=== PATIENT | male | born 1950 | race Caucasian/White ===

== ENCOUNTER 2016-06-08 14:45 | Inpatient (IN) | payer MEDICARE, OTHER ==
[~2016-06-08] VITALS: Ht 170.2 cm; Wt 81.8 kg
--- NOTE | ~2016-06-08 | DS ---
PATIENT'S NAME: BETH SAMUEL [facility] AGE: 65 Y [address] ROOM: [address] [place] [id number] LOCATION: [facility] ADMIT DATE: 06/08/2016 Discharge Summary DISCHARGE DATE: 06/17/2016 FAMILY PHYSICIAN: bOdulia Ruano APRN ATTENDING PHYSICIAN: Katherine Wheat ADMISSION MAIN DIAGNOSES: 1. Incomplete cervical spinal cord injury. 2. C2, C3 flexion compression fracture. 3. C2-3, C3-4 spinal stenosis. DISCHARGE MAIN DIAGNOSES: 1. Incomplete cervical spinal cord injury. 2. C2, C3 flexion compression fracture. 3. C2-3, C3-4 spinal stenosis. PROCEDURES DURING ADMISSION: C2-C5 decompressive laminectomy, C2-C5 posterior instrumented arthrodesis and stabilization. COMPLICATIONS DURING ADMISSION: None. DISCHARGE INSTRUCTIONS AND FOLLOWUP APPOINTMENTS: 1. Discontinue wound aries by primary physician on June 23, 2016. 2. Soft neck collar when in bed, [place] neck collar when mobilizing. 3. No heavy lifting, no neck twisting. 4. Call my office directly for any issues with wound healing or for any new neurologic deficits. 5. Keep the dressing on and dry till June 19, 2016, then take off and keep the wound open to air. 6. Upright cervical spine x-ray on July 09, 2016. MEDICATIONS ON TRANSFER: Listed in the patient's transfer medications. HOSPITAL COURSE: The patient is a 65-year-old male patient, who was admitted to the hospital with incomplete cervical spinal cord injury. The patient had severe weakness on the right upper and lower extremities. His imaging showed evidence of C2, C3 vertebral body fracture, severe stenosis at C2-C3, and C3-4 levels. The patient had previous anterior cervical diskectomy and fusion. The patient underwent an unremarkable operation during the admission. Postoperatively, the patient did very well. His right-sided weakness started to improve with physical therapy and occupational therapy. The patient was able to mobilize with physical therapy and occupational therapy. He had postoperative cervical spine x-ray and that showed satisfactory placement of the hardware and no complications. The patient was assessed by rehab, and it was felt that this patient may benefit from inpatient rehabilitation. Given PATIENT'S NAME: BETH SAMUEL [facility] AGE: 65 Y [address] ROOM: [address] [place], [place] [address] LOCATION: [facility] ADMIT DATE: 06/08/2016 Discharge Summary DISCHARGE DATE: 06/17/2016 FAMILY PHYSICIAN: Obdulia Ruano APRN ATTENDING PHYSICIAN: Katherine Wheat that, it was arranged for this patient to be transferred to [facility] to continue inpatient rehabilitation. On the day of discharge, the patient was examined. His wound was healing very well. Neurologically, the right upper extremity weakness started to improve. The patient was mobilizing very well with physical therapy and occupational therapy. I discussed the discharge instructions with the receiving physician, and the patient was transferred on June 17, 2016, in stable condition. MD KATELYN ESCOTO/aline /[id number] CC: DULCE Peng PA-C [address] [place] [address] d: 06/18/16 0449 t: 06/18/16 1317, DISCHARGE SUMMARY
--- NOTE | ~2016-06-08 | OR ---
PATIENT'S NAME: LIZZIE [facility] AGE: 65 Y [address] ROOM: [place] [address] LOCATION: [facility] ADMIT DATE: 06/08/2016 OR/Procedure Report DISCHARGE DATE: FAMILY PHYSICIAN: Obdulia Ruano APRN ATTENDING PHYSICIAN: KATHERINE WHEAT SURGEON: Katherine Wheat MD [employer]MENT MECH[employer]IC APPRENTICE: DATE OF PROCEDURE: 06/09/2016 ANESTHESIOLOGIST: Solis Lozoya MD ANESTHESIA: General. COMPLICATIONS: None. ESTIMATED BLOOD LOSS: 150 mL. PREOPERATIVE DIAGNOSES: 1. Incomplete cervical spinal cord injury post fall. 2. C2-C3, C3-C4, and C4-C5, cervical spinal stenosis with myelopathy. 3. History of C4 to C7 anterior cervical diskectomy and fusion. 4. C2 and C3 vertebral body fracture. POSTOPERATIVE DIAGNOSES: 1. Incomplete cervical spinal cord injury post fall. 2. C2-C3, C3-C4, and C4-C5, cervical spinal stenosis with myelopathy. 3. History of C4 to C7 anterior cervical diskectomy and fusion. 4. C2 and C3 vertebral body fracture. PROCEDURES PERFORMED: 1. C2-C3 decompressive laminectomy for spinal stenosis. 2. C3-C4 decompressive laminectomy for spinal stenosis. 3. C4-C5 decompressive laminectomy for spinal stenosis. 4. C2-C3, C3-C4, and C4-C5 posterior arthrodesis. 5. Insertion of bilateral C2 pars screws, bilateral C3 lateral mass screws, bilateral C4 lateral mass screws, and bilateral C5 lateral mass screws (system used is [email or web address] system). 6. Insertion of a mixture of allograft, autograft, and DBM bone posterolaterally for the arthrodesis. 7. Application of Davison head clamp. 8. Use and interpretation of intraoperative fluoroscopy. CLINICAL HISTORY/INDICATIONS FOR PROCEDURE: The patient is a 65-year-old male patient, who had a fall from a standing position on 06/07/2016, presented to the hospital with gamifjxk-ha-phdhzk weakness in his extremities. He was PATIENT'S NAME: LIZZIE [facility] AGE: 65 Y [address] ROOM: [address] [address] LOCATION: [facility] ADMIT DATE: 06/08/2016 OR/Procedure Report DISCHARGE DATE: FAMILY PHYSICIAN: Obdulia Ruano APRN ATTENDING PHYSICIAN: KATHERINE WHEAT initially investigated with cervical spine CT scan and that showed C2, C3 vertebral body fracture as well as severe stenosis at C2-C3, C3-C4, and C4-C5 levels. The patient then had cervical spine MRI and that confirmed injury to the cervical spinal cord at C3-C4 level due to severe stenosis. I recommended the above-mentioned surgery to the patient and his family to try to decompress the cervical spinal cord and hopefully help with recovery. I discussed the surgery itself, the benefits, and all the risks associated with it. The patient was interested in proceeding with surgery so he was brought into the operating room. DESCRIPTION OF PROCEDURE: The patient was seen in the preoperative care unit and the correct side was marked. Then, he was transferred to the main operating theater, was given general anesthetic, and underwent endotracheal intubation without complications. Preoperative antibiotics, steroids were given. Viera catheter, calf compressors, and an arterial line were used throughout the procedure. The patient's head was clamped in 3 pins Davison. Then, he was carefully turned to prone position on a gel padded Sudarshan table and all his joints and bony prominences were securely padded. The patient's shoulders were taped away for intraoperative fluoroscopy. The hair overlying the suboccipital scalp was clipped off. Then, I marked the midline posterior cervical incision extending from the inion down to C7 spinous process. The surgical site was prepped and draped as per usual. The proposed skin incision was infiltrated with 0.25% Marcaine with epinephrine. The skin was sharply opened down to the subcutaneous tissue, then using monopolar cautery, the posterior elements from C2 to C5 were exposed bilaterally. The correct level was confirmed using intraoperative fluoroscopy. I started by inserting screws into C2 pars, C3, C4, and C5 lateral masses. Based on the standard anatomical landmarks and using intraoperative fluoroscopy, those screws were inserted without complications. The hardware placement was checked using intraoperative fluoroscopy. I was satisfied with that. Then, I proceeded to perform the decompressive laminectomy at C2-C3, C3-C4, and C4-C5 levels. Leksell was used to remove the spinous processes of C2, C3, C4, and C5. Then using a high-speed Midas Gary drill, the laminae were thinned down to the ligamentum flavum. The ligamentum flavum was enlarged at three levels. Then, using Kerrison rongeur, I completed the decompressive laminectomy at C2-3, C3-4, and C4-5 without complications. The thecal sac was completely decompressed at the end. I was satisfied with that and had no complications. Then, I proceeded to insert rods and lock the screws. Two rods were inserted, the screws were capped and finally locked. Final x-ray was performed and that PATIENT'S NAME: BETH SAMUEL [facility] AGE: 65 Y [address] ROOM: [address] [place], [place] [address] [facility] ADMIT DATE: 06/08/2016 OR/Procedure Report DISCHARGE DATE: FAMILY PHYSICIAN: Obdulia Ruano APRN ATTENDING PHYSICIAN: KATHERINE WHEAT showed satisfactory placement of the hardware. Then, I proceeded to irrigate the wound. It was irrigated with bacitracin- containing irrigation. Hemostasis was achieved. A high-speed Midas Gary drill was used to decorticate the facet joints and the lateral masses from C2 to C5. Then a mixture of allograft, autograft, and DBM bone was laid posterolaterally and bilaterally for posterior arthrodesis. The dura was covered with Gelfoam. A 1/8 Hemovac drain was inserted, tunneled, and secured to the skin with 3-0 Prolene. Then, the wound was closed in layers with #1 Vicryl to the fascia, 2- 0 Vicryl to the subcutaneous tissue, and aries for the skin. Sterile dressing was applied. At the end of the operation, the instrument and sponge counts were correct. The patient tolerated the operation without complications. MD KATELYN ESCOTO/aline /[id number] CC: Obdulia Ruano APRN d: 06/09/16 1305 t: 06/10/16 1048, OPERATIVE SUMMARY
--- NOTE | ~2016-06-08 | HP ---
PATIENT'S NAME: LIZZIE BETH [facility] AGE: 65 Y [address] ROOM: [address] [place], [place] [address] LOCATION: [facility] ADMIT DATE: 06/08/2016 History & Physical DISCHARGE DATE: FAMILY PHYSICIAN: Obdulia Ruano APRN ATTENDING PHYSICIAN: NASRIN REEDER DATE OF SERVICE: 06/08/2016 CHIEF COMPLAINT: Traumatic cervical spinal cord injury due to fall; C2, C3 fractures; C3-4 severe spinal stenosis; previous C4-C7 anterior cervical diskectomy and fusion. CLINICAL HISTORY: The patient is a 65-year-old male patient, who lives alone, had a fall on June 07, 2016, from a standing position. The patient fell forward. He had loss of consciousness. When he woke up, he was unable to move his upper and lower extremities. He was then found by his ex- on the floor. She called for help, and they managed to get him up to the chair. Slowly, the patient started moving his extremities but continued to have severe weakness on the right upper and lower extremities. He then had another fall. He tumbled and fell sideways. Today, the patient was concerned about the weakness, and he presented to the emergency in [place] where he was investigated. Cervical spine CT scan showed evidence of C2, C3 vertebral body fractures as well as severe stenosis at C3-4 level. I was contacted and reviewed the imaging. I recommended transferring the patient over for further investigations and management. I met the patient on the kathleen. He confirmed the history. He was accompanied by his family, who helped with the history as well. At the time of the encounter, the patient reported numbness and tingling on his extremities. He also reported severe weakness on his hands, right worse than the left. He reported mild neck pain. He also reported longstanding low back pain and bilateral buttock and thigh pain. He denied fever, chills. The patient is known to have COPD, and he uses oxygen at home. PAST MEDICAL AND SURGICAL HISTORY: Hypertension, COPD, previous C4-C7 anterior cervical diskectomy and fusion, right knee surgery. MEDICATIONS: Listed in the patient's chart. ALLERGIES: LISTED IN THE PATIENT'S CHART. PATIENT'S NAME: LIZZIE [facility] AGE: 65 Y [address] ROOM: [address] [place], [place] [address] LOCATION: [facility] ADMIT DATE: 06/08/2016 History & Physical DISCHARGE DATE: FAMILY PHYSICIAN: Obdulia Ruano APRN ATTENDING PHYSICIAN: NASRIN REEDER SOCIAL HISTORY: The patient lives alone in [place]. He is an ex-smoker. He reported social alcohol drinking. FAMILY HISTORY: The patient's brother has COPD and diabetes. REVIEW OF SYSTEMS: A 10-point review of systems was asked about. Pertinent positives were mentioned in the HPI. PHYSICAL EXAMINATION: GENERAL: The patient was cooperative and pleasant. He was on nasal oxygen. HEENT: Head: The patient had bruising on his forehead. Pupils were equal and reactive. NECK: It was immobilized in rigid collar. He had mild tenderness to palpation on the back of his neck. SKIN: He had an anterior neck scar from previous surgery. LYMPHATIC: No cervical lymphadenopathy. RESPIRATORY: He was in mild respiratory distress due to COPD. CARDIOVASCULAR: He had strong pulses on the upper and lower extremities. GAIT: Not done. MUSCULOSKELETAL: He had evidence of muscle wasting on both hands. NEUROLOGICAL: He was alert and oriented. Cranial nerves examination was grossly normal. Motor examination on the upper extremities showed moderate weakness on the left side and severe weakness on the right side, distal more than proximal. The right hand muscles were severely weak. 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 Motor examination on the lower extremities showed moderate weakness proximally and distally, right worse than the left. Deep tendon reflexes were severely brisk on the lower extremities. He had strongly positive clonus bilaterally. He also had strongly positive Marly and Babinski signs. Deep tendon reflexes were brisk throughout. INVESTIGATIONS: 1. Cervical spine CT scan done in [place], [place], today. I personally reviewed that. It showed evidence of C2, C3 vertebral body fracture involving the anterior inferior corner. It also showed evidence of previous C4 through C7 anterior cervical diskectomy and fusion with satisfactory bony fusion and canal decompression. It showed evidence of severe stenosis at C3-4 level. 2. MRI cervical spine done today. It showed evidence of acute spinal cord injury at C3-4 level due to severe spinal stenosis at the same level. It showed congenitally small cervical canal. PATIENT'S NAME: BETH SAMUEL [facility] AGE: 65 Y [address] ROOM: [address] [place], [place] [address] LOCATION: [facility] ADMIT DATE: 06/08/2016 History & Physical DISCHARGE DATE: FAMILY PHYSICIAN: Obdulia Ruano APRN ATTENDING PHYSICIAN: NASRIN REEDER 3. Lumbar spine CT scan. I personally reviewed that. It showed evidence of L5-S1 isthmic spondylolisthesis, grade 1. It showed evidence of bilateral L5 foraminal stenosis, severe. No evidence of fractures. IMPRESSION AND PLAN: A 65-year-old male patient had a fall from a standing position yesterday, developed severe weakness on his extremities, is found on cervical spine CT scan and MRI to have C2, C3 vertebral body fractures, and spinal cord injury at C3-4 level due to severe stenosis at that level. The patient's neurological examination showed obvious signs of cervical myelopathy. PLAN: 1. I recommended C2 through C5 decompressive laminectomy, C2 through C5 posterior instrumented fusion. The surgery is scheduled on June 09, 2016. 2. Dexamethasone 3 mg p.o./IV t.i.d. 3. Hospitalist involvement for medical treatment. I reviewed the imaging with the patient and his family and pointed out the abnormalities. I then discussed the natural history of cervical spinal cord injury associated with cervical spinal stenosis. I recommended the above mentioned surgery to try to decompress the cervical canal and improve the chances of recovery. I discussed the procedure itself, the benefits, and all the risks associated with it. I clearly indicated that this patient will likely require inpatient rehabilitation either here or in swing bed down in [place]. The patient and his family asked appropriate questions, and those were answered to their satisfaction. The patient was interested in proceeding with surgery. We scheduled for surgery on June 09, 2016. It was a pleasure taking care of this patient and thanks for having us involved. MD KATELYN ESCOTO/aline /[id number] CC: Obdulia Ruano APRN D: [id number] T: [id number] HISTORY & PHYSICAL
--- NOTE | ~2016-06-08 | CON ---
PATIENT'S NAME: [facility] AGE: 65 Y [address] ROOM: [id number] [place], [place] [address] LOCATION: GPCU ADMIT DATE: 06/08/2016 Consultation DISCHARGE DATE: FAMILY PHYSICIAN: Obdulia Ruano APRN ATTENDING PHYSICIAN: NASRIN WHEAT DATE OF CONSULTATION: 06/08/2016 REQUESTING PHYSICIAN: Dr. Wheat. CONSULTATION PHYSICIAN: Sterling Garrett MD. REASON FOR CONSULT: Medical management. HISTORY OF PRESENT ILLNESS: This is a 65-year-old male, who had a fall today. The patient states that he apparently lost consciousness for about an hour. The patient then lay there last night at his home. He was then taken to the ER early this morning. He presented with generalized weakness, numbness, and tingling of bilateral upper extremities. The patient was evaluated at an outlying facility and was found to have a C2 fracture. He was then transferred to [facility] under Dr. Wheat's care. Please see his admission H and P for further details. At the time of my examination, the patient states that he had a fall last night and lost his consciousness for about an hour. He does not complain of any headache right now. He has neck pain, and his neck is currently immobilized in a C-collar. He has a C2 fracture. He denies any chest pain or shortness of breath. He was not lightheaded prior to the fall. This was an accidental fall. He denies any abdominal pain, diarrhea, or constipation. No other musculoskeletal symptoms reported. Denies any fever history. Denies any constipation or diarrhea. He has a history of asthma and has chronic respiratory failure. He states that he uses oxygen at all times. He also has a history of COPD and uses inhalers on a regular basis. The patient also has a history of coronary artery disease but denies any chest pain currently. No other complaints at this point of time. REVIEW OF SYSTEMS: A 10-point review of systems was done and was otherwise negative except as mentioned above. PATIENT'S NAME: [facility] AGE: 65 Y [address] ROOM: [id number] [place], [place] [address] LOCATION: GPCU ADMIT DATE: 06/08/2016 Consultation DISCHARGE DATE: FAMILY PHYSICIAN: Obdulia Ruano APRN ATTENDING PHYSICIAN: NASRIN WHEAT ALLERGIES: NOVOCAIN. PAST MEDICAL HISTORY: Reviewed. 1. History of hypertension. 2. History of CAD. 3. History of asthma. 4. History of COPD, O2 dependent. 5. Chronic hypoxic respiratory failure, O2 dependent. HOME MEDICATIONS: Per MAR. SOCIAL HISTORY: Reviewed. He is a former smoker, [id number] smoking history. Occasional alcohol use reported. No illicit drug use reported. PAST SURGICAL HISTORY: 1. Neck surgery x2. 2. Right ankle surgery. 3. Right knee surgery. 4. Right hip bone removal for fusion in the neck. PHYSICAL EXAMINATION: VITAL SIGNS: Temperature 98.4, pulse 78 and regular, respirations 20, blood pressure 191/87, and saturation 93% on 2 L nasal cannula oxygen. GENERAL: The patient is alert and oriented x3. Follows all commands. Moves all extremities, in no acute distress. HEENT: Head: Normocephalic, atraumatic. Pupils are equal, round, and reactive to light. Nares clear. Throat clear. Mucous membranes dry. NECK: Currently in a C-collar. HEART: Regular rate and rhythm. LUNGS: Clear to auscultation bilaterally. ABDOMEN: Soft, nontender, nondistended. Bowel sounds are present. EXTREMITIES: No clubbing, cyanosis, or edema. VASCULAR: Pulses 2+ distally bilaterally. NEUROLOGIC: The patient is alert and oriented x3. Follows all commands. Moves all extremities. Cranial nerves 2 through 12 grossly intact. The patient has zvznurfv-[id number] weakness bilateral upper extremities, hand squeezing present, and equal and symmetric bilaterally. Strength is 3/5 bilateral upper extremities. Sensation intact bilateral upper and lower extremities. DIAGNOSTIC STUDIES: PATIENT'S NAME: [facility] AGE: 65 Y [address] ROOM: [place] [address] [facility] ADMIT DATE: 06/08/2016 Consultation DISCHARGE DATE: FAMILY PHYSICIAN: Obdulia Ruano APRN ATTENDING PHYSICIAN: NASRIN WHEAT Studies were reviewed from the referral hospital. The patient had a CT abdomen and pelvis without IV contrast, that showed no definite acute injury. The patient had bilateral L5 spondylosis, that was seen along with AVN of the femoral heads. Chest x-ray was done at the referral facility and showed no acute cardiopulmonary process. Partially visualized lower anterior cervical fusion noted. CT head no contrast was done and showed no acute intracranial pathology. CT cervical spine without contrast was done and showed acute fractures of the C2 and C3 vertebral bodies. The patient had a CMP done, that showed ALT 58, AST 49, glucose 118, creatinine 0.48, chloride 97.6. Platelets 223, hemoglobin 16.5, hematocrit 48.8. Albumin 3.9, total protein 7.5, calcium 9.2, potassium 4.17, sodium 141, BUN 8, glucose 118, total bilirubin 0.9, alkaline phosphatase 101, hemoglobin A1c 5.3, BNP 28. EKG was done at [facility] and showed sinus rhythm with no acute ST changes and rate of 95 beats per minute. CBC was done at [facility] showed a white count of 8.1, hemoglobin 15.8, hematocrit 48.1, platelets 227. CMP showed sodium 143, potassium 4.4, chloride 104, bicarb 29, BUN 11, creatinine 0.8, glucose 150, calcium 8.9. Total protein 7.4, albumin 3.1, AST 51, ALT 69, alkaline phosphatase 99, total bilirubin 0.6, anion gap 14.4, globulin 4.3, GFR more than 60. PT 10.7, INR 1.0, and PTT 26. MRI lumbar spine was done at [facility] and showed bilateral spondylosis at L5-S1 with a 6 mm of anterolisthesis of L5 on S1 along with a broad-based disk bulging at this level, severe bilateral neuroforaminal stenosis noted. No significant canal stenosis identified. MRI cervical spine without contrast was done and showed degenerative and postoperative changes with severe canal stenosis at C3 and C4 and slight increased cord signal at cervical cord at this level, likely representing compressive myelopathy or edema, congenitally shallow central canal was noted. Small anterior inferior corner fracture at C2 and C3 was identified. ASSESSMENT AND PLAN: A 65-year-old male, status post fall and C2 fracture. 1. Status post fall. The patient states that this was an accidental fall. He was not lightheaded prior to the fall. 2. C2 fracture. Further plan per Neurosurgery. Plan is for surgery per Dr. Wheat. Further recommendations per Dr. Wheat. The patient is currently on oxycodone for pain control. Further recommendations per Dr. Wheat. PATIENT'S NAME: [facility] AGE: 65 Y [address] ROOM: [id number] [place], [place] [address] [facility] ADMIT DATE: 06/08/2016 Consultation DISCHARGE DATE: FAMILY PHYSICIAN: Obdulia Ruano APRN ATTENDING PHYSICIAN: NASRIN WHEAT 3. History of hypertension. Monitor BP for now. 4. History of coronary artery disease. Stable. 5. History of asthma. RT to score and treat. O2 as needed to keep sats more than 90%. 6. History of chronic obstructive pulmonary disease. RT to score and treat. We will give him breathing treatment as needed. 7. Chronic hypoxic respiratory failure, likely secondary to history of chronic obstructive pulmonary disease. O2 as needed to keep saturations 88% to 95%. 8. Code status. Full code. Discussed with the patient at the time of admission. 9. Deep vein thrombosis prophylaxis. SCD to legs. Further recommendations for DVT prophylaxis per primary team. 10. Preoperative clearance. Anesthesia has already seen the patient. Further recommendations per anesthesia and Dr. Wheat. Hospitalist Team was asked for medical management. STERLING GARRETT MD MT/modl /[id number] d: 06/09/160 t: 06/11/16 1036, CONSULTATION REPORT
--- NOTE | ~2016-06-08 | CON ---
PATIENT'S NAME: BEHT SAMUEL [facility] AGE: 65 Y [address] ROOM: [address] [place] [id number] LOCATION: [facility] ADMIT DATE: 06/08/2016 Consultation DISCHARGE DATE: FAMILY PHYSICIAN: Obdulia Ruano APRN ATTENDING PHYSICIAN: NASRIN WHEAT REFERRING PHYSICIAN: Jagjit Knight MD Consult for Dr. Wheat. This 65-year-old gentleman is referred for rehab evaluation, he is status post bilateral upper and lower extremity weakness and is status post at the present time and did undergo surgical procedure as follows. 1. C2-C3, C3-C4, C4-C5 decompression laminectomy. 2. C2-C3, C3-C4, C4-C5 posterior arthrodesis. 3. Insertion of bilateral C2 pars screws, bilateral C3 lateral mass screws, bilateral C4 lateral mass screws, and bilateral C5 lateral mass screws, and using LUBB-TEX system. 4. Insertion of a mixture of allograft, autograft, and DBM bone posteriorly for arthrodesis. 5. Application of Davison head clamps and use of intraoperative fluoroscopy on 06/09/2016, details on record. This was to correct. 1. Incomplete spinal cord stenosis with myelopathy. 2. C2-C3, C3-C4, C4-C5 cervical spine cord stenosis with myelopathy. 3. Old history of C4-C7 anterior cervical diskectomy, fusion. 4. C2 and C4 vertebral body fractures secondary to a falling incident. PAST MEDICAL HISTORY OF SIGNIFICANT: 1. History of hypertension. 2. Coronary artery disease. 3. Asthma. 4. COPD, O2 dependent. 5. Chronic respiratory hypoxemia. He is alert, oriented. Vitals are as follows: Blood pressure 143/76, temperature 98.2, pulse 90, respiration rate 18. He is 5 feet 2 inches tall and weighs 86.5 kg. He is at the present time on oxygen per nasal cannula. He can talk, comprehend, express without much difficulty. He has at the present time, nasogastric tube, because of paralytic ileus that is a little bit better this morning. PATIENT'S NAME: [facility]ETH SAMUEL [facility] AGE: 65 Y [address] ROOM: [address] [place] [id number] LOCATION: [facility] ADMIT DATE: 06/08/2016 Consultation DISCHARGE DATE: FAMILY PHYSICIAN: Obdulia Ruano APRN ATTENDING PHYSICIAN: NASRIN WHEAT MEDICATIONS: He is on the following medications. 1. Reglan. 2. Heparin. 3. Albuterol. 4. Ultram. 5. Tylenol. 6. NaCl 0.9%. 7. Valium. 8. Protonix. 9. Valtrex. 10. Colace. 11. MOM. 12. Norvasc. 13. Dulcolax. 14. Tylenol. 15. Flexeril. 16. Albuterol. 17. Zofran. 18. Ancef. 19. Morphine sulfate. 20. Oxycodone. 21. Protonix. 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 We will put on intensive PT, OT, speech. For intensive rehabilitation, I feel he is a good candidate for intensive rehabilitation of about 3-4 weeks aiming to discharge home at [facility] thereafter. All the above was explained to him. He verbalized understanding. I will take him as soon as we have an opening for him. Thank you for this referral. MD JENNIFER ARELLANO/modl /[id number] d: 06/11/16 1403 t: 06/12/16 0826, CONSULTATION REPORT
[2016-06-08] MEDS ORDERED: ALBUTEROL2.5 MG/31 INH (16:04)
[2016-06-08] MEDS ORDERED: PROTONIX40 MG PO (16:09)
[2016-06-08] MEDS ORDERED: PROVENTIL OR V6.7 GM INH (16:10)
[2016-06-08] MEDS ORDERED: VIAGRA100 MG PO (16:11)
[2016-06-08] MEDS ORDERED: GUMMI BEAR MUL1 EACH PO (16:11)
[2016-06-08] MEDS ORDERED: ADVIL200 MG PO (16:12)
--- NOTE | 2016-06-08 19:03 | NUR ---
ULTRA HIGH FALL RISK FALL 06/07/16 Significant Event: A/O X3, bedrest - to MRI this afternoon, R)side weaker than left, moves all extremities freely and to command, BUE dull sensation, BLE chronic tingling/cool to touch, hx blurred vision L)eye, hx TRIBE, lungs dim BLL, O2 2l/nc as at home. reports poor appetite due to "bloating" after PO intake, saline lock L)FA, C-Collar on, MRI this afternoon at bedside at 1840 Follow up: Jarad muir [facility] called to place a [place] collar continue home O2.
[2016-06-08 20:15] LABS: HEMATOCRIT 48.1 % (37.0-53.0); HEMOGLOBIN 15.8 g/dL (11.0-16.0); MCH 33.8 pg (27.0-34.0); MCHC 32.8 gm/dL (32.0-36.5); MPV 9.7 fl (9.4-12.4); PLATELET COUNT 227 K/uL (150-450); RBC 4.67 M/uL (3.50-5.50); RDW-CV 13.1 % (11.9-14.6); WBC 8.1 K/uL (4.0-11.0)
[2016-06-08 20:28] LABS: PROTIME 10.7 SECONDS (9.6-11.1); PTT 26 SECONDS (25-32)
[2016-06-08 20:34] LABS: ALBUMIN 3.1 gm/dL (3.5-5.0); ALK PHOS 99 IU/L (33-138); ALT 69 IU/L (12-78); ANION GAP 14.4 (10.0-19.0); AST 51 IU/L (10-40); BLOOD UREA NITROGEN 11 mg/dL (6-24); CALCIUM 8.9 mg/dL (8.5-10.5); CHLORIDE 104 mMol/L (96-110); CO2 29 mMol/L (22-32); CREATININE 0.8 mg/dL (0.6-1.3); ESTIMATED GFR (MDRD EQUATION) > 60; POTASSIUM 4.4 mMol/L (3.7-5.1); SODIUM 143 mMol/L (135-145); TOTAL BILIRUBIN 0.6 mg/dL (0.0-1.5); TOTAL PROTEIN 7.4 g/dL (6.0-8.4)
[2016-06-08 20:35] LABS: ABSOLUTE NEUTROPHIL CT (ANC) 7.5 K/uL (1.4-9.0); LYMPHOCYTE # 0.6 K/uL (0.8-4.0); LYMPHOCYTE % 7 %; SEGMENTED NEUTROPHIL # 7.5 K/uL (1.4-9.0); SEGMENTED NEUTROPHIL % 93 %
--- NOTE | 2016-06-09 04:57 | NUR ---
Significant Event: A/Ox3. States numbness and tingling to feet and hands. Moves all extremities spontaneously and to command. Weakness noted. Very difficult to grasp hands. States occasionally sees " black lines like spider webs in vision" Dr. Wheat aware. VSS on 2L of O2. Lungs diminished throughout. Sinus rhythm. Surgery this Am for c2-c5 decompressive laminectomy and c2-c5 posterior instrumental fusion. Unable to void this shift. Bladder scanned 457ml. Notified Dr. Garcia and orders for a pandey catheter to be placed were obtained. IV to left forearm infusing Normal Saline at 75ml/hr. [place] collar on at all times. ELEM and reads lips. NPO since midnight. Follow up:
--- NOTE | 2016-06-09 19:17 | NUR ---
ULTRA HIGH FALL RISK Significant Event: A/O x3, hx. severe Anxiety, tearful before surgery, returns from PACU at 1330, Dull/tingling sensation to BUE as before surgery, tingling to BLE as before surgery, drsg to posterior neck D/I, R)side weaker than Left, moves all extremities independantly. Hemovac patent, abrasion to forehead, family @ bedside. Soft collar on when HOB <30, Russell Collar on when HOB>30 pandey patent, tolerates liquid diet, Dilaudid [employer] GLAZIER & IVF L)wrist, Saline lock L)wrist. O2 3.5 l/nc. Follow up: O2 dependant at home PT/OT tomorrow.
[2016-06-09 22:22] LABS: CPK 397 IU/L (35-332)
[2016-06-10 04:32] LABS: HEMATOCRIT 41.6 % (37.0-53.0); HEMOGLOBIN 13.5 g/dL (11.0-16.0); MCH 34.4 pg (27.0-34.0); MCHC 32.5 gm/dL (32.0-36.5); MCV 105.9 fl (83.0-98.0); RBC 3.93 M/uL (3.50-5.50); RDW-CV 12.9 % (11.9-14.6); WBC 14.4 K/uL (4.0-11.0)
[2016-06-10 04:47] LABS: ANION GAP 12.5 (10.0-19.0); POTASSIUM 4.5 mMol/L (3.7-5.1)
--- NOTE | 2016-06-10 05:05 | NUR ---
Significant Event: A/OX3. STATES NUMBNESS AND TINGLING TO ARMS AND LEGS BILATERALLY. MOVES ALL EXTREMITIES SPONTANEOUSLY AND TO COMMAND. WEAKNESS NOTED. DIFFICULTY GRASPING HANDS. NO COMPLAINTS OF CHANGE IN VISION. SOFT COLLAR ON WHEN HOB <30. ASPEN COLLAR ON WHEN HOB>30. PT OT TO SEE TODAY. MONTENEGRO INTACT. NORMAL SALINE GOING INTO LEFT WRIST IV AT 75ML/HR. DILAUDID [employer] TEACHER 0.2MG [id number] DEMAND WITH A 4MG/4HR LOCKOUT. ON SCHEDULED OXYCOTIN. ON ANCEF. COMPLAINED OF CHEST PAIN DURING SHIFT. WHEN IN THERE TO ASSESS SITUATION HE STATED IT WAS NOT SHARP OF PAIN AND WHEN EXPLAINED HOW SERIOUS WE TAKE CHEST PAIN HE THOUGHT IT WAS MORE OF A MUSCLE PULL THEN CHEST PAIN. DR. GARRETT NOTIFIED AND ORDERED CARDIAC ENZYMES AND AN EKG PRN WHEN THERE IS CHEST PAIN. CARDIAC ENZYMES WERE CALLED TO DR GARRETT AND HE WAS FINE WITH THEM. DRAIN TO POSTERIOR NECK HAD 105 OUT. DRESSING TO POSTERIOUS NECK C/D/I. CLEAR LIQUID DIET - ADVANCE AAS TOLERATED Follow up:
--- NOTE | 2016-06-10 11:10 | NUR ---
Introduced self and CM role to Yoni. He tells me that he lives at home alone and he is hoping to get back there once he is medically cleared to do so. He was doing all of his own medications at home and has no issues continuing to do so when he goes back. We talked about him possibly needing a short SWB stay. He tells me that his PCP is in [place], [place] but that is over an hour away from his hometown, so he would like to see if they have anything in [place], [place] for him to go to as it is only 10 minutes from his hometown. He states that he would be open to going there if he needed to. I let him know that I could look into [facility] in [place] to see if they had a SWB unit that could possibly accept him when he was ready to go. He was fine with this. I also asked him if he had a preference on which doctor would follow him while he was there. He states he has no preference. We visited about his transportation situation either to his house or to B when he is ready to leave here. He tells me that he has family that can come and get him and take him to whichever place he needs to go. No other questions, needs or concerns. Will continue to follow and assist. Plan SWB upon discharge.
--- NOTE | 2016-06-10 16:21 | NUR ---
ULTRA HIGH FALL RISK Significant Event: A/O X3, 2 assist/gait belt/walker, unsteady gait, ambulates to door w/ PT, up in chair this afternoon, pandey removed at 1020 -no void yet, KUB done for grossly distended abdomen, abdomen firm, bowel sounds present, tolerates diet, o2 2l/nc as at home, lungs slight coarse/diminished, uses incentive spirometry to 1000ml. oxyir last at 1425, drsg intact to posterior neck, Hemovac 80ml drng, moves all extremities, Right side weaker than Left, tingling to BUE and BLE, dull sensation to BUE, moderate hand grasps. Hx Blurry vision/blind L)eye, [place]K, saline lock x2 L)wrist, Follow up: Home O2 2l/nc, monitor voids encourage Incentive spirometry
[2016-06-11 04:19] LABS: HEMOGLOBIN 14.1 g/dL (11.0-16.0); MCH 33.7 pg (27.0-34.0); MPV 9.7 fl (9.4-12.4); RBC 4.19 M/uL (3.50-5.50); WBC 9.7 K/uL (4.0-11.0)
--- NOTE | 2016-06-11 07:34 | NUR ---
Significant Event: Patient A/O x 3. perrla. Redness to bilateral eyes. 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 Feels "woozy" when ambulates. Encouraged to take his time before getting up and while ambulating. States feeling some dizziness is normal for him. N/T to bilateral hands and feet. Feels like "skin is crawling". Sensitive to touch to bilateral arms. Ambulates 2 assist, GB/walker. HTN with SBPs in 140s. Tachycardic, HR in 90s. 3L of 02 this shift with sats at 94%. wears 2 l OF 02 at all times at home. NG placed at change of shift on 06/10/16 to low intermittent suction, 210 mls for output this shift. Can give PO meds through NG. For pain, give tylenol first then Tramadol if no relief. Tylenol given x 1. Tramadol given x 1, relief noted. Pain rated from 4-6. Urinary retention. Viera placed at 0555 for bladder scan of 548 ml. Hemovac to posterior neck, 70 ml output this shift, dressing intact. [place] collar intact. L) wrist PIV x 2. PIV running 50 ml/hr. Ambulated to bathroom this shift, did well. Follow up: OVIDIO this am.
--- NOTE | 2016-06-11 14:59 | NUR ---
Significant Event:VSS.3L PER NC. NG REMAINS TO LIS.NPO.HYPOACTIVE BOWEL SOUNDS.MONTENEGRO TO DD, PATENT.ULTRAM GIVEN THIS AM FOR BACK/ NECK PAIN WITH RELIEF. VISTA COLAR ON.UP WITH 2 ASSIST+WALKER. AMBULATED IN HALLS.MYRIAM CONSULTED TODAY. PLANS TO GO TO REHAB OR SWING BED WHEN STABLE. Follow up:WILL CONTINUE TO MONITOR PER PLAN OF CARE.
--- NOTE | 2016-06-11 15:22 | NUR ---
Call from Yoni's , who he is from but they still get along good. She tells me that she has been talking with their son, and he would like for Yoni to go to [facility] in [place], [place] when he is ready to dismiss from us. I let her know that this would be Yoni's choice on where he wants to go, she voices understanding to this. She tells me that his son and daughter in law as well as Yoni's brother are coming down to see him tomorrow and will talk with it about him then and once they have all visited then I can make referrals to whichever place Yoni wants to go to. I let her know that this was fine, and I would have a staff member follow up with Yoni and family tomorrow as I would be out of the office for the day. No other questions, needs or concerns. I did stop by to visit with Yoni, but he was sleeping the first time and then talking with nursing/doctor the second time. Will continue to follow and assist.
--- NOTE | 2016-06-12 04:06 | NUR ---
Significant Event: A/OX3. N/T TO BILATERAL HANDS AND FEET. MOVES ALL EXTREMITIES SPONTANEOUSLY AND TO COMMAND. WEAKNESS NOTED TO RIGHT UPPER EXTREMITY. ON 3L OF O2. TACHYCARDIC. NG TO LOW INTERMITTENT SUCTION - 210 OUT THIS SHIFT. MONTENEGRO INTACT FOR URINARY RETENTION - 1200 OUT THIS SHIFT. IV TO LEFT WRIST RUNNING NS AT 100ML/HR. TRAMADOL GIVEN FOR PAIN - RELIEF NOTED. HEMOVAC TO POSTERIOR NECK - 45ML OUT THIS SHIFT. DRESSING TO POSTERIOR NECK HAS SHADOW DRAINAGE. VISTA COLLAR ON WHEN HOB >30. SOFT COLLAR ON WHEN HOB<30. UP 2 ASSIST. Follow up: OVIDIO THIS AM.
[2016-06-12 04:53] LABS: BLOOD UREA NITROGEN 9 mg/dL (6-24); CHLORIDE 99 mMol/L (96-110); CO2 31 mMol/L (22-32); CREATININE 0.5 mg/dL (0.6-1.3); ESTIMATED GFR (MDRD EQUATION) > 60; MAGNESIUM 2.1 mg/dL (1.3-2.6); SODIUM 138 mMol/L (135-145)
--- NOTE | 2016-06-12 13:19 | NUR ---
Noted Marti's care management notes from yesterday and reviewed chart, physician progress note says likely will be ready for dc to rehab on Friday. I introduced self and care management services to patient, let him know doctors said they anticipate ready for dc on Friday and that we should work on dc plan for where he wants to go to for swingbed closer to home. He says he wants to talk with his family about that, I did let him know his ex called and suggested [facility] as son lives in [place] and could be more support to him. He says he doesn't know if he wants to do that as 150 miles from where he lives, thinks he would rather go to [facility]ing[facility] 15 miles from home, but again that he wants to talk with his family first. Told him that was fine and that I would come visit this afternoon and give him a chance to talk with his family on the phone, but that we need to decide today so we can start a referral. Will see him this afternoon.
--- NOTE | 2016-06-12 15:58 | NUR ---
Talked with patient and called ex Yoel while in his room so he and I both could speak with her, phone nmber [phone]. Brother Torres number is [phone]. Discussed rehab level of care here vs [facility] level of care closer to home or closer to son in [facility]. They decided they want pt to be closer to son in [facility] for better family support during and after skilled stay. Called and faxed referral to Venecia at [facility] in [place] at her direct phone number [phone] and fax [phone]. Hospital number is [phone]. Clinic number is [phone]. They will look at referral and get back to Marti or Pat tomorrow. Family will transport, asked if they could drive fpc and stay at brothers then go rest of way next day, told pt and exwife we will ask that question but will get answer from [facility] about if they can accept first. They request EILEEN Holland for primary care doc there to follow and I let Venecia [facility] coordinator know that. Direct Customer Service Representative will talk with patient and call exwife tomorrow.
--- NOTE | 2016-06-12 17:37 | NUR ---
ULTRA HIGH FALL RISK Significant Event: A/O X3, HUGHES, Blurred vision L)eye, 2 assist/gait belt/walker, up in chair, ambulated in leal x2, Hemovac removed and drsg changed by , Soft collar when up in chair, [place] collar on when Ambulating in leal per order, saline lock L) wrist, IVF L)wrist, NTG removed - BM today, tolerating clear liquids, pandey removed - voids per urinal, O2 dependant at home 2l/nc, lungs diminished BLL, intermittent tingling to BUE improving, tingling to BLE, R)side weaker than left, tylenol x2 last at 1400. Follow up: plan for possible discharge to [facility]
--- NOTE | 2016-06-13 03:38 | NUR ---
Significant Event: A/Ox3. States numbness and tingling to hands and feet. Moves all extremities spontaneously and to command. Right hand much weaker than left. 2 assist gait belt and walker. SPOKANE. Left eye blurry vision. soft collar when in bed and up in chair. vista collar when walking around. IV to left wrist x2. One saline locked, other running normal saline at 75ml/hr. No BM this shift. Lungs clear/diminished and occasionally coarse. On 2-3L of O2. On 2L of O2 at home. 2300 urine output this shift. Regular diet. Dressing to posterior neck c/d/i. Follow up: [facility]
--- NOTE | 2016-06-13 08:48 | NUR ---
A - PT SCREENED D/T LOS. C2-C3 FX. RECENT ILEUS W/ NG TO LIS - DC'D YESTERDAY. ABD DISTENDED. LABS: BUN/CR 9/0.5, ALB 3.1, PREALB 20. MEDS: REGLAN, PROTONIX, BOWEL/NAUSEA. DIET: REG. INTAKE 75-100% OF CLEAR LIQUID x 1 DAYS. PREVIOUSLY NPO. HT: 67" WT: 186# BMI: 29.2. NEEDS: [id number] KCAL (20-25 KCAL/KG), 67-84 G PRO (0.8-1 G/KG), 2520 ML FLUID (30 ML/KG). D - INADEQUATE NUTRIENT INTAKE R/T ALTERED GI FUNCTION AEB RECENT NPO STATUS, ILEUS, CLEAR LIQUID DIET. I - GOAL FOR REGULAR DIET TOLERANCE. WILL ADD ENSURE @ B TO INC NUTRIENT INTAKE. M/E - WILL MONITOR INTAKE AND GI FUNCTION. F/U IN 4-5 DAYS
--- NOTE | 2016-06-13 09:25 | NUR ---
Call and VM left with Venecia at [place] [place] [facility] asking if she had gotten the referral CM Elaina had sent yesterday and if doctors had a chance to look at it yet. I asked that she call me back if/when they have reviewed it to let me know if they would be able to accept upon discharge. Will await for a call back from her. Will continue to follow and assist.
--- NOTE | 2016-06-13 11:09 | NUR ---
Call from Venecia at [facility]. She states that she reviewed the information and did talk with EILEEN éPrez and she has accepted Yoni to come to them for a skilled [facility] stay. Venecia tells me that Sue won't be in the office or around to do the accepting until Friday so that is the soonest that they will accept. I let her know I would talk with doctors and make sure that they were fine with a Friday transfer and then update her after that if there would be any issues with that. She gave me the number for RN to RN report to be called on Friday [phone] and EILEEN Pérez [phone] for MD to MD report. I let her know that I would call her back with updates on Friday and then some more on Friday. Venecia was fine with this. I called to talk with Dr. Wheat about Yoni not being able to go until Friday due to MD acceptance, he was fine with this plan. Stopped by to talk with Yoni, updated him that [facility] would be able to accept on Friday. He tells me he wants to talk with his family first and then make a decision. He also tells me that he wants to go home for a day or two and then check into the [facility]. I let him know that normally that is not how transfers go. He would be dismissed from [facility], family would then take him to the [facility] that same day. He voiced frustration to this stating, "I am going to go home for the day before the B if you like it or not. I can't make the trip in one day it's like 12 hours." I let him know that they could stop for a rest break if needed, but when I googled how far it was to [facility], it was only around 4 hours. He tells me again he wants to talk with him family before comitting to anything. I did call , Yoel, updated her to all the above. Let her know that we would look at Friday for transfer, family would still take and would need to go from [facility] to [facility] and not spend the night anywhere. I also told her that if she or whoever was going to transport him on Friday, might want to consider staying the night on Friday here in town so that way it isn't a super long day of travel for them. She states she understands this, but would like to meet with me in person before going in and talking with Yoni today as she is on her way up right now. I let her know that I wouldnt' be in the office this afternoon, but I would have another CM come and meet with her. She was fine with this. No other questions, needs or concerns. Will continue to follow and assist. Packet started, orders printed and no ID Screen is needed.
--- NOTE | 2016-06-13 14:51 | NUR ---
Significant Event: VSS. PATIENT A/O X 3. FOLLOWS COMMANDS. RT UPPER EXTREMITY VERY WEAK, RIGHT LOWER EXTREMITY VERY SLIGHTLY WEAKER THEN LEFT. NUMBNESS/TINGLING TO HANDS AND FEET. PUPILS 2MM, BRISK. LUNGS CLEAR AND DIM, AT TIMES COARSE, 2 LITERS OF O2 AT HOME. ABDOMEN FIRM, BUT ADEQUATE BOWEL MOVEMENT AND BOWEL SOUNDS TODAY. TOLERATING A REGULAR DIET WELL. UP WITH 1 ASSIST AND WALKER. VISTA COLLAR ON WHEN AMBULATING AND SOFT COLLAR WHEN IN CHAIR OR BED. SOFT COLLAR TRIMMED FOR PATIENT TODAY, MUCH MORE COMFORTABLE FOR HIM. IV IN LEFT WRIST X 2, BOTH SALINE LOCKED. TYLENOL GIVEN AT 1430 FOR HEADACHE. ALARMS ON FOR SAFETY. Follow up: PLAN FOR SWINGBED ON FRIDAY.
--- NOTE | 2016-06-14 02:11 | NUR ---
Significant Event: Patient A/O x 3. Left eye peripheral blindness, blurriness as well. Lungs clear and dim on 2 L of 02. Chronic N/T to hands and feet. Right hand very weak in strength. Right lower slightly weaker than left. Regular diet. Last bm was yesterday. Transfers 1 assist, GB/walker. [place] collar on when up. Soft collar on when in bed or in chair. PIV to left wrist saline locked. No complaints of pain. HTN at times. Follow up: Swing bed on Friday.
--- NOTE | 2016-06-14 17:20 | NUR ---
Significant Event: PATIENT A/O X 3. L) PERIPHERAL BLINDNESS. WEAK R) GRASP. RIGHT LOWER EXTREMITY SLIGHTLY WEAKER THAN LEFT. PATIENT REPORTS CHRONIC NUMBNESS AND TIBGLING IN HANDS AND FEET. LUNGS CLEAR, COARSE AT TIMES ON 2L OF O2. SOFT COLLAR ON PATIENT WHEN UP IN CHAIR OR IN BED. VISTA COLLAR WHEN AMBULATING. TRANSFERS 1A GB/WALKER. IV IN L) WRIST SALINE LOCKED. ULTRAM GIVEN AT 1630 FOR NECK AND BACK PAIN. Follow up: SWING BED ON FRIDAY.
--- NOTE | 2016-06-15 01:27 | NUR ---
Significant Event: A&OX3. Chronic N&T to hands and feet. Peripheral blind in L) eye. R) hand grasp and arm movement and leg movement weaker than L). On tele SR. VSS. On 2L of O2 wears at home due to COPD. Pt voids per urinal inc at times. Regular diet. Face is bruised. Drsg to posterior neck shadow drainage. IV to L) wrist SL. Ultram given for pain during the night. Takes pills crushed in applesauce. Follow up:
[2016-06-15 13:31] LABS: BASOPHIL % 0.3 %; EOSINOPHIL # 0.1 K/uL (0.0-0.5); EOSINOPHIL % 1.4 %; HEMATOCRIT 43.6 % (37.0-53.0); HEMOGLOBIN 14.3 g/dL (11.0-16.0); IMMATURE GRANULOCYTE # 0.1 K/uL (0.0-0.3); LYMPHOCYTE # 1.1 K/uL (0.8-4.0); LYMPHOCYTE % 12.3 %; MCHC 32.8 gm/dL (32.0-36.5); MCV 103.8 fl (83.0-98.0); MONOCYTE # 0.7 K/uL (0.0-1.0); MPV 9.6 fl (9.4-12.4); NEUTROPHIL # (ANC) 7.2 K/uL (1.4-9.0); NRBC % 0 /100WBC (0-0.00); RDW-CV 12.7 % (11.9-14.6); WBC 9.3 K/uL (4.0-11.0)
[2016-06-15 13:33] LABS: PLATELET COUNT 297 K/uL (150-450)
[2016-06-15 13:49] LABS: ALBUMIN 2.5 gm/dL (3.5-5.0); ALK PHOS 183 IU/L (33-138); ALT 77 IU/L (12-78); ANION GAP 9.9 (10.0-19.0); AST 48 IU/L (10-40); BLOOD UREA NITROGEN 12 mg/dL (6-24); CALCIUM 8.7 mg/dL (8.5-10.5); CHLORIDE 98 mMol/L (96-110); CREATININE 0.6 mg/dL (0.6-1.3); ESTIMATED GFR (MDRD EQUATION) > 60; POTASSIUM 3.9 mMol/L (3.7-5.1); SODIUM 141 mMol/L (135-145); TOTAL BILIRUBIN 0.5 mg/dL (0.0-1.5); TOTAL PROTEIN 6.9 g/dL (6.0-8.4)
[2016-06-15 13:52] LABS: CO2 37 mMol/L (22-32)
--- NOTE | 2016-06-15 17:09 | NUR ---
Significant Event: PATIENT A/O X 3. L) PERIPHERAL BLINDNESS. N/T TO HANDS AND FEET. WEAKNESS IN R) HAND. LUNGS CLEAR AND DIMINISHED ON 2L OF O2. 1AGB TRANSFER. SOFT COLLAR WHEN IN BED OR CHAIR. VISTA COLLAR WITH AMBULATION. L) WISRT SALINE LOCK. Follow up: SWINGBED FRIDAY IN [place].
--- NOTE | 2016-06-16 04:13 | NUR ---
Significant Event: The patient is Alert and Oriented x3. N/T to the Right foot-not new. Up with 1 Assist, Gaitbelt and walker. Pain to his neck gave Ultram last at 0334. VSS, On 2L oxyge per NC. Can get SOB with activity. Order for Mucinex this shift for congestion. Dressing to Posterior neck is dry and intact. Abrasion to his forehead, and he also has scattered bruising. Right hand grasp is slightly weaker than his left, but overall still moderate strength. PIV to the Left wrist saline locked. Takes his pills crushed with applesauce. [place] collar when ambulating. Soft collar when in the bed and sitting up. Follow up:
--- NOTE | 2016-06-16 16:11 | NUR ---
Significant Event: PATIENT A/O X 3. L) PERIPHERAL BLINDESS. WEAK R) GRASP. LUNGS CLEAR AND DIMINISHED ON 2L OF O2. AMBULATES 1AGB, VISTA COLLAR ON DURING AMBULATION, SOFT COLLAR ON IN BED AND CHAIR. L) WRIST IV, SALINE LOCKED. ULTRAM GIVEN FOR PAIN AT 1400. Follow up: SWINGBED FRIDAY.
--- NOTE | 2016-06-17 03:56 | NUR ---
Significant Event: The patient is Alert and Oriented x3. Numbness and Tingling to bilateral feet. Moves all extremities spontaneously and to command. Moderate strength. Right hand grasp slightly weaker than his left. Up with 1 Assist, gaitbelt and walker. VSS. On 2L oxygen per NC. Spasms to his back gave flexeril at 191. Dressing to posterior neck- C/D/I. [place] collar on when ambulating, Soft collar on when sitting or in bed. PIV to the Left Wrist Saline locked. Peripheral Vision loss in the Left eye-not new. Crush meds with applesauce-per patient preference. Follow up: Discharge to [facility] in [place] today
--- NOTE | 2016-06-17 09:11 | NUR ---
Significant Event: a/o x 3. pain to back- PRN ultram administered for pain management. Numbness and tingling to bilateral feet. Moderate strength throughout with right hand grasp weaker than left. chronic peripheral vision loss to left eye. 2 liters of oxygen continuous. NSR. DSG to posterior neck C/D/I. soft collar when sitting or in bed/vista collar with ambulation. Patient requests meds crushed in applesauce due to swallowing difficulties. Regular diet. Ambulates with walker than one assist. Plan to transfer to swing bed at 1000 per private vehicle driven by family.
--- NOTE | 2016-06-17 10:22 | NUR ---
Call/faxed an update to Lea Ruffin RN at [facility] earlier this morning. Melly on [facility] also faxed her discharge orders/meds early this morning as well. Lea states they got the updates and discharge medications and from what they could see everything looked good and discharge was a go. She states that they are expecting him later this afternoon. Explained to her that family would be bringing him and they were leaving here around [id number] at this time. I did ask her if MD to MD had been done, she states she thought it had been they were just waiting on RN to RN report. I did remind RN Zaira to call in report at 0915 & again at 1015 to make sure to call that before he left. She tells me that she is still busy passing meds and checking on other patients so she will get that called in as soon as she can. Yoni did leave the building before RN to RN was done, but she has the number to call in report whenever she gets a free moment to do so. was here to transport Yoni, she brought O2 with her for transport. No other questions, needs or concerns.
== END 2016-06-17 10:03 | disposition swing bed (61) | DRG 28 ==
LOC: GNTU 15:22 → GPCU 15:22 → GNTU 06-10 06:10
PROVIDERS: Family Medicine; Hospitalist; ADMIT Neurological Surgery
PROC: 0RG20Z1 (ICD-10-PCS; principal; 2016-06-09)
DX: S14.159A Other incomplete lesion at unspecified level of cervical spinal cord, initial encounter (principal); J96.21 Acute and chronic respiratory failure with hypoxia; R53.2 Functional quadriplegia; M47.12 Other spondylosis with myelopathy, cervical region; J96.11 Chronic respiratory failure with hypoxia; Z99.81 Dependence on supplemental oxygen; J44.9 Chronic obstructive pulmonary disease, unspecified; S12.100A Unspecified displaced fracture of second cervical vertebra, initial encounter for closed fracture; S12.200A Unspecified displaced fracture of third cervical vertebra, initial encounter for closed fracture; I25.10 Atherosclerotic heart disease of native coronary artery without angina pectoris; W19.XXXA Unspecified fall, initial encounter; J45.909 Unspecified asthma, uncomplicated; Z87.891 Personal history of nicotine dependence
CPT/HCPCS: C1713; C9113; J0690; J1100; J1170; J1644; J2250; J2405; J2765; J3010; J3360; J7030; J7050